=== PATIENT | female | born 1980 | race Caucasian/White ===

== ENCOUNTER → 2017-09-26 | Outpatient (CLI) | payer OTHER | END | disposition home or self-care (01) | LOC: RAH 09:18 → EEVIPCON 09:18 | PROVIDERS: ATTEND Internal Medicine | DX: I51.7 Cardiomegaly (principal); I25.10 Atherosclerotic heart disease of native coronary artery without angina pectoris; I10 Essential (primary) hypertension; I50.9 Heart failure, unspecified; E78.5 Hyperlipidemia, unspecified | CPT/HCPCS: 93306 ==

== ENCOUNTER → 2017-11-28 | Outpatient (CLI) | payer OTHER | END | disposition home or self-care (01) | LOC: EEVIPCON 09:05 → RAH 09:05 | PROVIDERS: ATTEND Internal Medicine | DX: R10.12 Left upper quadrant pain (principal) | CPT/HCPCS: 74240 ==